=== PATIENT | female | born 1985 | race Caucasian/White ===

== ENCOUNTER 2016-10-12 08:08 | Inpatient (IN) | payer MEDICAID ==
[2016-10-12] MEDS ORDERED: Nalbuphine 20 MG/1 ML Amp IVPUSH PRN (11:12)
[2016-10-12] MEDS ORDERED: Sodium Chloride 0.9% 10 ML Syringe FLUSH PRN (11:12)
[2016-10-12] MEDS ORDERED: Ondansetron 4 MG/2 ML SDV IVPUSH PRN (11:12)
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
[2016-10-12] MEDS: Lactated Ringers 1,000 ML IV SCH ×4 (13:30→20:02)
[2016-10-12] MEDS ORDERED: Oxytocin/Lactated Ringers 10 UNIT/1,000 ML BAG IV SCH ×2 (13:30→16:00)
--- NOTE | 2016-10-12 14:25 | PCM.PREANE ---
Preanesthetic Assessment - Procedure Proposed Procedure: Continuous labor epidural - Anesthesia/Transfusion/Family Hx Anesthesia History: Prior Anesthesia Without Reaction Transfusion History: No Prior Transfusion(s) - Review of Systems General: No Symptoms Pulmonary: No Symptoms Cardiovascular: No Symptoms Gastrointestinal: No symptoms Neurological: No Symptoms Other: Reports: None - Physical Assessment O2 Sat by Pulse Oximetry: 100 Respiratory Rate: 18 Vital Signs: Last Vital Signs Temp 36.7 C 10/12/16 08:25 Pulse 105 H 10/12/16 08:25 Resp 18 10/12/16 08:25 BP 126/75 10/12/16 08:25 Pulse Ox 100 10/12/16 08:25 Height: 1.57 m Weight: 93.032 kg ASA Class: 2 Mental Status: Alert & Oriented x3 Airway Class: Mallampati = 1 Dentition: Reports: Normal Dentition Thyro-Mental Finger Breadths: 3 Mouth Opening Finger Breadths: 3 ROM/Head Extension: Full Lungs: Clear to auscultation, Normal respiratory effort Cardiovascular: Regular Rate, Regular Rhythm, No Murmurs - Lab Values: Laboratory Last Values WBC 12.82 K/mm3 (3.98-10.04) H 10/12/16 12:00 RBC 3.91 M/mm3 (3.98-5.22) L 10/12/16 12:00 Hgb 12.3 gm/L (11.2-15.7) 10/12/16 12:00 Hct 36.4 % (34.1-44.9) 10/12/16 12:00 MCV 93.1 fl (79.4-94.8) 10/12/16 12:00 MCH 31.5 pg (25.6-32.2) 10/12/16 12:00 MCHC 33.8 g/dl (32.2-35.5) 10/12/16 12:00 RDW Std Deviation 47.8 fL (36.4-46.3) H 10/12/16 12:00 Plt Count 178 K/mm3 (182-369) L 10/12/16 12:00 MPV 11.2 fl (9.4-12.3) 10/12/16 12:00 Neut % (Auto) 64.0 % (34.0-71.1) 10/12/16 12:00 Lymph % (Auto) 27.9 % (19.3-51.7) 10/12/16 12:00 [place] % (Auto) 6.7 % (4.7-12.5) 10/12/16 12:00 Eos % (Auto) 0.5 (0.7-5.8) L 10/12/16 12:00 Baso % (Auto) 0.2 % (0.1-1.2) 10/12/16 12:00 Neut # (Auto) 8.21 K/mm3 (1.56-6.13) H 10/12/16 12:00 Lymph # (Auto) 3.58 K/mm3 (1.18-3.74) 10/12/16 12:00 Winn # (Auto) 0.86 K/mm3 (0.24-0.36) H 10/12/16 12:00 Eos # (Auto) 0.06 K/mm3 (0.04-0.36) 10/12/16 12:00 Baso # (Auto) 0.02 K/mm3 (0.01-0.08) 10/12/16 12:00 Urine Color Light yellow (Yellow) 10/12/16 09:05 Urine Appearance Clear (Clear) 10/12/16 09:05 Urine pH 6.5 (5.0-8.0) 10/12/16 09:05 Ur Specific [place] 1.015 (1.005-1.030) 10/12/16 09:05 Urine Protein Negative (Negative) 10/12/16 09:05 Urine Glucose (UA) Negative (Negative) 10/12/16 09:05 Urine Ketones Negative (Negative) 10/12/16 09:05 Urine Occult Blood Negative (Negative) 10/12/16 09:05 Urine Nitrite Negative (Negative) 10/12/16 09:05 Urine Bilirubin Negative (Negative) 10/12/16 09:05 Urine Urobilinogen 0.2 (0.2-1.0) 10/12/16 09:05 Ur Leukocyte Esterase Negative (Negative) 10/12/16 09:05 Urine RBC Not seen /hpf (0-5) 10/12/16 09:05 Urine WBC 0-5 /hpf (0-5) 10/12/16 09:05 Ur Epithelial Cells 0-5 /hpf (0-5) 10/12/16 09:05 Urine Bacteria Few /hpf (FEW) 10/12/16 09:05 Urine Mucus Not seen /hpf (FEW) 10/12/16 09:05 - Allergies Allergies/Adverse Reactions: Allergies Allergy/AdvReac Type Severity Reaction Status Date / Time No Known Drug Allergies Allergy Other Verified 10/12/16 08:38 - Acknowledgements Anesthesia Type Planned: Epidural Pt an Appropriate Candidate for the Planned Anesthesia: Yes Alternatives and Risks of Anesthesia Discussed w Pt/Guardian: Yes Pt/Guardian Understands and Agrees with Anesthesia Plan: Yes PreAnesthesia Questionnaire Respiratory History: Reports: Bronchitis, 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: Psychiatric History: Reports: Anxiety, PTSD - Past Surgical History HEENT Surgical History: Reports: LASIK - SUBSTANCE USE Smoking Status *Q: Former Smoker (Quit 6 yrs has a 7 mo pack hx) Tobacco Use Within Last Twelve Months: No Second Hand Smoke Exposure: No Days Per Week of Alcohol Use: 0 Recreational Drug Use History: No Recreational Drug Type: Reports: Cocaine - HOME MEDS Home Medications: Home Meds Vit 90/Iron Fum/Folic [ Formula] 1 tab PO DAILY 03/07/16 [ History] Calcium Carbonate [Calcium] 1,200 mg PO 10/12/16 [History] - CURRENT (IN HOUSE) MEDS Current Meds: Current Medications Fentanyl/Bupivacaine HCl (Fentanyl/Bupivacaine/Ns 2 Mcg-0.125% 100 Ml) 100 ml EPIDUR ASDIRECTED BRIANNA Lactated Ringer's (Ringers, Lactated) 1,000 mls @ 100 mls/hr IV ASDIRECTED BRIANNA Oxytocin/Lactated Ringer's (Pitocin In Lr 10 Units/1,000 Ml) 10 unit in 1,000 mls @ 500 mls/hr IV TITRATE BRIANNA PRN Reason: Protocol Nalbuphine HCl (Nubain) 10 mg IVPUSH Q2H PRN PRN Reason: Pain (moderate 4-6) Ondansetron HCl (Zofran) 4 mg IVPUSH Q4H PRN PRN Reason: Nausea/Vomiting Sodium Chloride (Saline Flush) 10 ml FLUSH ASDIRECTED PRN PRN Reason: Keep Vein Open
[2016-10-12] MEDS ORDERED: Bupivacaine/fentaNYL/NS 100 ML Bag EPIDUR SCH (14:30)
--- NOTE | 2016-10-12 22:32 | PCM.SN ---
- Free Text/Narrative Note: Cata is a 30-year-old 2 now para 2002 white female who is admitted on the a.m. of 10/12/2016. She was in early labor. She progressed to approximately 5 cm by late afternoon on 10/12/2016 at which time she was alicia every 3-5 minutes, moderate to strong in intensity. Artificial rupture membranes resulted in clear amniotic fluid. She progressed more rapidly than to complete and with 1 contraction patient delivered a viable, jones, male infant with Apgars of 8 and 9, weight of 3150 g (6 pounds 615.1 ounces) and a length of 20.5 inches at 2208 hrs. on 10/12/2016. The baby delivered in a left occiput anterior position. The patient had a first-degree perineal laceration which was repaired with 3-0 Vicryl suture in a single interrupted [id number] suture. Epidural was used for labor analgesia and was adequate for the laceration repair. Very superficial abrasion was noted in the medial aspect of the right labia minora. No stitches were used to repair this Cord bloods was obtained. The placenta delivered spontaneously in a Arcadio fashion, appeared complete and intact and had a three-vessel cord. It was discarded per patient desire. Pitocin was administered after the delivery of the baby. Patient tolerated the laceration repair well. Cervix is noted to be very low and to the grade 2 position visible at the introitus. Sponge instrument and needle counts are correct at the end of procedure. Patient plans to nurse. Condition good.
[2016-10-12] MEDS ORDERED: Docusate Sodium 100 MG Cap PO PRN (22:53)
[2016-10-12] MEDS ORDERED: Witch Hazel Medicated Pads 100/Jar TOP PRN (22:53)
[2016-10-12] MEDS ORDERED: Bupivacaine 0.25% 10 ML SDV ONE (22:53)
[2016-10-12] MEDS ORDERED: Acetaminophen 325 MG Tab PO PRN (22:53)
[2016-10-12] MEDS ORDERED: Benzocaine/Menthol 20%-0.5% Spray 56 GM Canister TOP PRN (22:53)
[2016-10-12] MEDS ORDERED: Lanolin 100% Cream 7 GM Tube TOP PRN (22:53)
[2016-10-13] MEDS: Ibuprofen 600 MG Tab PO PRN ×5 (00:30→19:56)
--- NOTE | 2016-10-13 05:09 | PCM48HPAN ---
Post Anesthesia Note - EVALUATION WITHIN 48HRS OF ANESTHETIC Vital Signs in Normal Range: Yes Patient Participated in Evaluation: Yes Respiratory Function Stable: Yes Airway Patent: Yes Cardiovascular Function Stable: Yes Hydration Status Stable: Yes Pain Control Satisfactory: Yes Nausea and Vomiting Control Satisfactory: Yes Mental Status Recovered: Yes - COMMENTS/OBSERVATIONS Free Text/Narrative:: Pt reports both she and baby are doing well and that epidural worked well. Epidural now completely resolved with return of normal strength and sensation to monico. LE. no n/v, fever/chills. up to bathroom and ambulating without problem. taking p.o. reports minor soreness at epidural site.
--- NOTE | 2016-10-13 09:36 | PCM.SN ---
- Free Text/Narrative Note: day one patient is doing well. She has minimal lochia, is ambulating well and is nursing without problems. Her pain is under good control. Hemoglobin is 9.5, white count is 15,000, platelets are 172. In general patient is well-developed, well-nourished pleasant female in no acute distress. Abdomen is soft, nontender, uterus is at the umbilicus, firm. Legs are nontender with only minimal edema. Assessment: day #1doing well. no evidence of infection. Plan: Routine care. Home tomorrow.
[2016-10-14 05:06] VITALS: BP 117/70
[2016-10-14] MEDS: Ibuprofen 600 MG Tab PO PRN (06:58)
--- NOTE | 2016-10-14 07:58 | PCM.DCSUM1 ---
Discharge Summary - Hospital Course Free Text/Narrative:: Cata is a 30-year-old 2 now para 2002 white female who is admitted on the a.m. of 10/12/2016. She was in early labor. She progressed to approximately 5 cm by late afternoon on 10/12/2016 at which time she was alicia every 3-5 minutes, moderate to strong in intensity. Artificial rupture membranes resulted in clear amniotic fluid. She progressed more rapidly than to complete and with 1 contraction patient delivered a viable, jones, male infant with Apgars of 8 and 9, weight of 3150 g (6 pounds 615.1 ounces) and a length of 20.5 inches at 2208 hrs. on 10/12/2016. The baby delivered in a left occiput anterior position. The patient had a first-degree perineal laceration which was repaired with 3-0 Vicryl suture in a single interrupted [id number] suture. Epidural was used for labor analgesia and was adequate for the laceration repair. Very superficial abrasion was noted in the medial aspect of the right labia minora. No stitches were used to repair this Cord bloods was obtained. The placenta delivered spontaneously in a Arcadio fashion, appeared complete and intact and had a three-vessel cord. It was discarded per patient desire. Pitocin was administered after the delivery of the baby. Patient tolerated the laceration repair well. Cervix is noted to be very low and to the grade 2 position visible at the introitus. Sponge instrument and needle counts are correct at the end of procedure. Patient plans to nurse. Condition good. patient has done very well. She is nursing without problems. She has minimal lochia, minimal pain and is ambulating well. She is voiding without concerns. Follow-up CBC is within normal limits for the period. Patient is desiring discharge home. - Discharge Data Discharge Date: 10/14/16 Discharge Disposition: Home, Self-Care 01 Condition: Good - Patient Instructions Diet: Regular Diet as Tolerated (Nursing diet with increased calcium and calories as directed.) Activity: As Tolerated (No intercourse or tampons until bleeding resolves.) Driving: May Drive Today Showering/Bathing: May Shower (May take a bath) Notify Provider of: Fever, Increased Pain, Swelling and Redness, Nausea and/or Vomiting - Discharge Plan Home Medications: Home Meds Vit 90/Iron Fum/Folic [ Formula] 1 tab PO DAILY 03/07/16 [ History] Calcium Carbonate [Calcium] 1,200 mg PO 10/12/16 [History] Ibuprofen [IJD: Ibuprofen] 600 mg PO Q4H PRN #30 tablet 10/14/16 [Rx] Referrals: Stewart Dupree MD [Primary Care Provider] - [facility] - Discharge Summary/Plan Comment DC Time >30 min.: No Discharge Summary/Plan Comment: Discharge instructions: 1. Discharge home. 2. Regular, high fiber, nursing diet with increased calcium and calories as recommended. 3. Diet, activity and follow-up were discussed in detail with patient. 4. Precautions given concern increased pain, bleeding, temperature, signs/ symptoms of DVT/PE. 5. Medications per home medication was printed, discussed with and given to the patient. 6. Return to clinic-Dr. Dupree-6 weeks-[facility]. Diagnosis: 38 week -delivered Condition: Good - Patient Data Vitals - Most Recent: Last Vital Signs Temp 36.7 C 10/14/16 04:00 Pulse 95 10/14/16 05:02 Resp 12 10/14/16 04:00 BP 117/70 10/14/16 05:02 Pulse Ox 99 10/14/16 05:02 Weight - Most Recent: 93.032 kg I&O - Last 24 hours: Intake & Output 10/13/16 10/14/16 10/14/16 22:59 06:59 14:59 Intake Total 240 Balance 240 Med Orders - Current: Current Medications Acetaminophen (Tylenol) 650 mg PO Q4H PRN PRN Reason: mild pain or fever Benzocaine/Menthol (Dermoplast Pain Relief [place]) 0 gm TOP ASDIRECTED PRN PRN Reason: Perineal Comfort Measure Last Admin: 10/13/16 00:29 Dose: 1 can Docusate Sodium (Colace) 100 mg PO BID PRN PRN Reason: Constipation Last Admin: 10/13/16 00:30 Dose: 100 mg Emollient Ointment (Lansinoh Hpa) 0 gm TOP ASDIRECTED PRN PRN Reason: Sore Nipples Ibuprofen (Motrin) 600 mg PO Q4H PRN PRN Reason: Mild pain or fever Last Admin: 10/14/16 06:58 Dose: 600 mg Witnicole Zamarripael (Tucks) 1 pad TOP ASDIRECTED PRN PRN Reason: Hemorrhoid pain Last Admin: 10/13/16 00:29 Dose: 1 can Discontinued Medications Fentanyl/Bupivacaine HCl (Fentanyl/Bupivacaine/Ns 2 Mcg-0.125% 100 Ml) 100 ml EPIDUR ASDIRECTED BRIANNA Last Admin: 10/12/16 15:02 Dose: 100 ml Lactated Ringer's (Ringers, Lactated) 1,000 mls @ 100 mls/hr IV ASDIRECTED BRIANNA Last Admin: 10/12/16 20:02 Dose: 100 mls/hr Oxytocin/Lactated Ringer's (Pitocin In Lr 10 Units/1,000 Ml) 10 unit in 1,000 mls @ 500 mls/hr IV TITRATE BRIANNA PRN Reason: Protocol Oxytocin/Lactated Ringer's (Pitocin In Lr 10 Units/1,000 Ml) 10 unit in 1,000 mls @ 12 mls/hr IV TITRATE BRIANNA; 2 MUNITS/MIN PRN Reason: Protocol Last Titration: 10/12/16 19:25 Dose: 10 munits/min, 60 mls/hr Nalbuphine HCl (Nubain) 10 mg IVPUSH Q2H PRN PRN Reason: Pain (moderate 4-6) Ondansetron HCl (Zofran) 4 mg IVPUSH Q4H PRN PRN Reason: Nausea/Vomiting Sodium Chloride (Saline Flush) 10 ml FLUSH ASDIRECTED PRN PRN Reason: Keep Vein Open *Q Meaningful Use (DIS) - VTE *Q VTE Criteria *Q: - Stroke *Q Stroke Criteria *Q: - AMI *Q AMI Criteria *Q:
== END 2016-10-14 09:00 | disposition home or self-care (01) | DRG 775 ==
LOC: JD.OBCHECK 08:08 → JD.OB 08:09 → JD.OBCHECK 11:13 → OBSVTOIN 22:08 → JD.OB 22:08
PROVIDERS: ADMIT Obstetrics & Gynecology; ATTEND Obstetrics & Gynecology
PROC: 10E0XZZ Delivery of Products of Conception, External Approach (ICD-10-PCS; principal; 2016-10-12)
PROC: 0HQ9XZZ Repair Perineum Skin, External Approach (ICD-10-PCS; 2016-10-12)
PROC: 10907ZC Drainage of Amniotic Fluid, Therapeutic from Products of Conception, Via Natural or Artificial Opening (ICD-10-PCS; 2016-10-12)
PROC: 00HU33Z Insertion of Infusion Device into Spinal Canal, Percutaneous Approach (ICD-10-PCS; 2016-10-12)
PROC: 3E0R3CZ (ICD-10-PCS; 2016-10-12)
DX: O70.0 First degree perineal laceration during delivery (principal); Z3A.38 38 weeks gestation of pregnancy; Z37.0 Single live birth
CPT/HCPCS: 01967; 36415; 81001; 85025; 85027; A9270-GY; J2590; J7120

== ENCOUNTER 2021-12-12 06:33 | Day surgery (SDC) | payer OTHER ==
[~2021-12-12 06:33] MED LIST: Lactated Ringers 1,000 ML IV SCH; Lidocaine 1%/Sod Bicarbonate in NS 8.4% 1 ML Syringe IDERM PRN; Sodium Chloride 0.9% 10 ML Syringe FLUSH PRN; Sodium Chloride 0.9% 10 ML Syringe FLUSH SCH
[2021-12-12] MEDS ORDERED: Ondansetron 4 MG/2 ML SDV ONE (06:50)
[2021-12-12] MEDS ORDERED: ceFAZolin 2 GM Vial ONE (06:50)
[2021-12-12] MEDS ORDERED: Propofol 200 MG/20 ML SDV ONE (06:50)
[2021-12-12] MEDS ORDERED: Rocuronium 50 MG/5 ML Vial ONE (06:50)
[2021-12-12] MEDS ORDERED: Midazolam 1 MG/ML 2 ML SDV ONE (06:50)
[2021-12-12] MEDS ORDERED: Lidocaine 1% 2 ML ONE (06:50)
[2021-12-12] MEDS ORDERED: fentaNYL 250 MCG/5 ML SDV ONE (06:51)
[2021-12-12] MEDS ORDERED: Scopolamine 1.5 MG Transdermal Patch TRDERM ONE (07:05)
[2021-12-12] MEDS ORDERED: fentaNYL 100 MCG/2 ML SDV IVPUSH PRN (07:10)
[2021-12-12] MEDS ORDERED: Ondansetron 4 MG/2 ML SDV IVPUSH PRN (07:10)
[2021-12-12] MEDS ORDERED: HYDROmorphone 0.5 MG/0.5 ML Syringe IVPUSH PRN (07:10)
[2021-12-12] MEDS ORDERED: Bupivacaine 0.5% 30 ML SDV ONE (07:14)
[2021-12-12] MEDS ORDERED: Sodium Chloride 0.9% 50 ML SDV ONE (07:14)
[2021-12-12] MEDS ORDERED: Lidocaine 1% with EPINEPHrine 1:100,000 20 ML MDV ONE (07:14)
[2021-12-12] MEDS ORDERED: Sugammadex Sodium 200 MG/2 ML VIAL ONE (08:52)
[2021-12-12] MEDS ORDERED: Ketorolac 30 MG/ML SDV ONE (09:11)
[2021-12-12] MEDS ORDERED: Acetaminophen/oxyCODONE 325-5 MG Tab PO ONE (11:30)
[2021-12-12 16:07] VITALS: BP 116/91; PULSE 81
== END 2021-12-12 11:15 | disposition home or self-care (01) ==
LOC: JD.SDS 06:33
PROVIDERS: ATTEND Obstetrics & Gynecology
DX: D25.1 Intramural leiomyoma of uterus (principal); D25.2 Subserosal leiomyoma of uterus; N39.3 Stress incontinence (female) (male); N80.0 Endometriosis of uterus; N87.9 Dysplasia of cervix uteri, unspecified; F41.1 Generalized anxiety disorder; E78.2 Mixed hyperlipidemia; E66.9 Obesity, unspecified; F43.10 Post-traumatic stress disorder, unspecified; Z79.899 Other long term (current) drug therapy; Z98.890 Other specified postprocedural states; Z87.891 Personal history of nicotine dependence; Z68.29 Body mass index [BMI] 29.0-29.9, adult
CPT/HCPCS: 36415; 57288; 58262; 81003; 81025; 86850; 86900; 86901; A9270; C1771; J0690; J1885; J2250; J2405; J2704; J3010; J3490; J7120; 00944

== ENCOUNTER 2022-02-06 06:52 | Day surgery (SDC) | payer OTHER ==
[2022-02-06] MEDS ORDERED: Scopolamine 1.5 MG Transdermal Patch TRDERM SCH (07:00)
[2022-02-06] MEDS ORDERED: Lidocaine 1% with EPINEPHrine 1:100,000 20 ML MDV ONE (07:21)
[2022-02-06] MEDS ORDERED: Sodium Chloride 0.9% 50 ML SDV ONE (07:21)
[2022-02-06] MEDS ORDERED: Propofol 200 MG/20 ML SDV ONE (07:32)
[2022-02-06] MEDS ORDERED: Lidocaine 1% 4 ML ONE (07:32)
[2022-02-06] MEDS ORDERED: fentaNYL 250 MCG/5 ML SDV ONE (07:32)
[2022-02-06] MEDS ORDERED: Midazolam 1 MG/ML 2 ML SDV ONE (07:32)
[2022-02-06] MEDS ORDERED: ceFAZolin 2 GM Vial ONE (07:47)
[2022-02-06] MEDS ORDERED: Ondansetron 4 MG/2 ML SDV ONE (08:15)
[2022-02-06] MEDS ORDERED: HYDROmorphone 0.5 MG/0.5 ML Syringe IVPUSH PRN (08:21)
[2022-02-06] MEDS ORDERED: fentaNYL 100 MCG/2 ML SDV IVPUSH PRN (08:21)
[2022-02-06] MEDS ORDERED: Ketorolac 30 MG/ML SDV ONE (08:24)
[2022-02-06] MEDS ORDERED: Lactated Ringers 1,000 ML ONE (08:37)
[2022-02-06] MEDS ORDERED: oxyCODONE 5 MG Tab PO PRN (09:22)
[2022-02-06] MEDS ORDERED: Metoclopramide 10 MG/2 ML SDV IVPUSH SCH (09:30)
[2022-02-06 10:51] VITALS: BP 108/79; PULSE 66
== END 2022-02-06 10:07 | disposition home or self-care (01) ==
LOC: JD.SDS 06:52
PROVIDERS: ATTEND Obstetrics & Gynecology
DX: R33.9 Retention of urine, unspecified (principal); G47.33 Obstructive sleep apnea (adult) (pediatric); F41.9 Anxiety disorder, unspecified; M16.0 Bilateral primary osteoarthritis of hip; Z98.890 Other specified postprocedural states; Z90.49 Acquired absence of other specified parts of digestive tract; Z90.710 Acquired absence of both cervix and uterus; Z79.899 Other long term (current) drug therapy
CPT/HCPCS: 57287; 81001; A9270; J0690; J1885; J2250; J2405; J2704; J2765; J3010; J7120; 00860